=== PATIENT | female | born 1960 | race Caucasian/White ===

== ENCOUNTER 2019-09-19 14:42 | Emergency (ER) | payer MEDICAID, OTHER ==
[~2019-09-19] VITALS: Ht 165.1 cm; Wt 72.7 kg
[~2019-09-19 14:42] MED LIST: ALB0.5UD IH; ALBU6.7H3 IH; PRED10TA PO
[2019-09-19] MEDS ORDERED: normal saline 1000ml 1,000 ML IV ONE (14:55)
--- NOTE | 2019-09-19 15:10 | NUR ---
CHILLED NS PULLED FROM [employer] [facility].
[2019-09-19 15:15] LABS: BASOPHILS # (AUTO) 0.1 X10'3 (0-0.2); EOSINOPHILS # (AUTO) 0.7 X10'3 (0-0.9); EOSINOPHILS % (AUTO) 7.9 % (0-6); HEMOGLOBIN 13.9 g/dl (12.0-16.0); LYMPHOCYTES # (AUTO) 2.2 X10'3 (1.1-4.8); LYMPHOCYTES % (AUTO) 23.2 % (21-51); MEAN CORPUSCULAR HEMOGLOBIN 29.3 PG (27.0-31.0); MEAN CORPUSCULAR HGB CONC 33.1 g/dL (33.0-36.5); MEAN CORPUSCULAR VOLUME 88.7 FL (78-98); MEAN PLATELET VOLUME 8.9 FL (7.4-10.4); MONOCYTES # (AUTO) 0.6 X10'3 (0-0.9); MONOCYTES % (AUTO) 6.7 % (2-12); NEUTROPHILS # (AUTO) 5.8 X10'3 (1.8-7.7); NEUTROPHILS % (AUTO) 61.2 % (42-75); PLATELET COUNT 197 X10'3 (140-440); RED BLOOD COUNT 4.74 X10'6 (4.20-5.60); RED CELL DISTRIBUTION WIDTH 13.7 % (11.5-14.5); WHITE BLOOD COUNT 9.5 X10'3 (4.5-11.0)
[2019-09-19 15:22] LABS: ALBUMIN 3.6 G/DL (3.4-5.0); ANION GAP 9 (8-16); BLOOD UREA NITROGEN 18 MG/DL (7-18); BUN/CREATININE RATIO 23.4 (6.6-38.0); CALCIUM 8.9 MG/DL (8.5-10.1); CHLORIDE 110 MMOL/L (99-107); CREATININE 0.77 MG/DL (0.40-0.90); GLUCOSE 123 MG/DL (70-104); POTASSIUM 3.5 MMOL/L (3.5-5.1); SODIUM 143 MMOL/L (135-145); TOTAL CARBON DIOXIDE 24.5 MMOL/L (24-32); eGFR 78 ML/MIN
--- NOTE | 2019-09-19 15:29 | NUR ---
pt family called Nemo [phone]
[2019-09-19 16:16] VITALS: BP 161/97
--- NOTE | 2019-09-19 17:32 | NUR ---
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 Nemo coming from [place]. Pt to await arrival in the lobby.
== END 2019-09-19 17:45 | disposition home or self-care (01) ==
LOC: ER 14:43
DX: R41.82 Altered mental status, unspecified (principal); T67.9XXA Effect of heat and light, unspecified, initial encounter; J44.9 Chronic obstructive pulmonary disease, unspecified; F41.9 Anxiety disorder, unspecified; F32.9 Major depressive disorder, single episode, unspecified; F15.90 Other stimulant use, unspecified, uncomplicated; F17.200 Nicotine dependence, unspecified, uncomplicated; Z79.899 Other long term (current) drug therapy; Y92.89 Other specified places as the place of occurrence of the external cause
CPT/HCPCS: 36415; 80048; 85025; 93005; 96360; 99284; J7030

== ENCOUNTER 2022-06-28 12:46 | Inpatient (IN) | payer MEDICAID ==
[~2022-06-28] VITALS: Ht 165.1 cm; Wt 74.2 kg
[2022-06-28] VITALS (18 sets, daily range): BP systolic 112–188; BP diastolic 59–105
[2022-06-28] MEDS ORDERED: propofol 1000mg/100ml bottle 100 ML IV ONE (13:00)
[2022-06-28] MEDS ORDERED: FENTANYL-0.9 % NACL/PF 100 ML IV PRN ×2 (13:00→13:05)
[2022-06-28] MEDS: propofol 1000mg/100ml bottle 100 ML IV SCH (13:04)
[2022-06-28 13:20] LABS: BASOPHILS % (AUTO) 0.2 % (0-1); EOSINOPHILS % (AUTO) 0.3 % (0-6); HEMATOCRIT 41.9 % (35.0-45.0); HEMOGLOBIN 13.8 g/dl (12.0-16.0); LYMPHOCYTES # (AUTO) 0.5 X10'3 (1.1-4.8); LYMPHOCYTES % (AUTO) 3.9 % (21-51); MEAN CORPUSCULAR HEMOGLOBIN 29.3 PG (27.0-31.0); MEAN CORPUSCULAR HGB CONC 32.9 g/dL (33.0-36.5); MEAN CORPUSCULAR VOLUME 89.2 FL (78-98); MEAN PLATELET VOLUME 8.6 FL (7.4-10.4); MONOCYTES # (AUTO) 0.2 X10'3 (0-0.9); MONOCYTES % (AUTO) 1.6 % (2-12); NEUTROPHILS # (AUTO) 12.8 X10'3 (1.8-7.7); PLATELET COUNT 192 X10'3 (140-440); RED BLOOD COUNT 4.69 X10'6 (4.20-5.60); RED CELL DISTRIBUTION WIDTH 14.5 % (11.5-14.5); WHITE BLOOD COUNT 13.6 X10'3 (4.5-11.0)
[2022-06-28 13:26] LABS: ABG BASE EXCESS -5.1 mmol/L (-2.0-2.0); ABG HCO3 21.4 mmol/L (22.0-26.0); ABG OXYGEN SATURATION 99.7 % (94-97); ABG PCO2 (T) 44.7 mmHg (32.0-45.0); ABG PO2 (T) 564.6 mmHg (75.0-100.0); ALLEN'S TEST POSITIVE; FCOHb 0.7 % (0.0-3.9); FMetHb 0.4 % (0.0-1.5); FO2Hb 98.6 % (94-97); PATIENT TEMPERATURE 36.7; PEEP 5 cm H2O; RESPIRATORY RATE 18 b/min; TIDAL VOLUME 450 mL; TOTAL HEMOGLOBIN 14.8 G/dl (12.0-16.0)
[2022-06-28] MEDS ORDERED: magnesium Cl slow-release 64mg tablet PO PRN ×2 (13:30)
[2022-06-28] MEDS ORDERED: acetaminophen 325mg tablet PO PRN (13:30)
[2022-06-28] MEDS ORDERED: magnesium 2GM in 50ml NS 50 ML IV PRN (13:30)
[2022-06-28] MEDS ORDERED: potassium Cl 40MEQ/1/2NS 520ml 520 ML IV PRN ×2 (13:30)
[2022-06-28] MEDS ORDERED: ondansetron/PF 4mg/2ml inj IV PRN ×2 (13:30)
[2022-06-28] MEDS ORDERED: propofol 1000mg/100ml bottle 100 ML IV SCH (13:30)
[2022-06-28] MEDS ORDERED: potassium Cl 20 mEq SR tablet PO PRN ×3 (13:30)
[2022-06-28] MEDS ORDERED: FENTANYL-0.9 % NACL/PF 100 ML IV SCH (13:30)
[2022-06-28] MEDS ORDERED: mag hydrox/Alum hydrox/simeth 30ml oral suspension PO PRN ×2 (13:30)
[2022-06-28] MEDS ORDERED: magnesium 4gm in 100ml NS 100 ML IV PRN (13:30)
[2022-06-28] MEDS ORDERED: magnesium hydroxide 30ml (MOM) UD suspension PO PRN ×2 (13:30)
[2022-06-28 13:36] LABS: ALANINE AMINOTRANSFERASE 38 U/L (12-78); ALBUMIN 3.7 G/DL (3.4-5.0); ALBUMIN/GLOBULIN RATIO 0.9 (1.1-1.5); ALKALINE PHOSPHATASE 103 IU/L (46-116); ANION GAP 9 (8-16); ASPARTATE AMINO TRANSFERASE 29 U/L (10-37); BILIRUBIN,TOTAL 0.4 MG/DL (0.1-1.0); BLOOD UREA NITROGEN 15 MG/DL (7-18); BUN/CREATININE RATIO 21.7 (10.0-20.0); CALCIUM 8.4 MG/DL (8.5-10.1); CHLORIDE 106 MMOL/L (99-107); CREATININE 0.69 MG/DL (0.40-0.90); GLUCOSE 144 MG/DL (70-104); SODIUM 141 MMOL/L (135-145); TOTAL CARBON DIOXIDE 25.7 MMOL/L (24-32); TOTAL PROTEIN 7.9 G/DL (6.4-8.2); eGFR 87 ML/MIN
[2022-06-28 13:40] LABS: POTASSIUM 2.9 MMOL/L (3.5-5.1)
--- NOTE | 2022-06-28 13:57 | NUR ---
NEPO AT BEDSIDE
[2022-06-28] MEDS: methylPREDNISolone sod succ 125mg/2ml vial IV SCH ×2 (14:05→20:54)
--- NOTE | 2022-06-28 14:30 | NUR ---
Received report from BONIFACIO Harrell. Pt arrived from ED monitored, mechanically ventilated, 100% FIO2, sedated, in sinus rhythm.
[2022-06-28] MEDS ORDERED: albuterol 2.5 MG/3 ML nebule NEB SCH (16:00)
[2022-06-28 16:08] LABS: CLARITY,URINE SLIGHTLY CLOUDY (Clear); COLOR,URINE YELLOW (Yellow); GLUCOSE, URINE NEGATIVE (Neg); KETONES,URINE NEGATIVE (Neg); LEUKOCYTE ESTERASE ,URINE NEGATIVE (Neg); NITRITES, URINE NEGATIVE (Neg); OCCULT BLOOD,URINE SMALL (Neg); PROTEIN,URINE NEGATIVE (Neg); UROBILINOGEN,URINE 0.2 E.U/dL (0.2-1.0)
[2022-06-28] MEDS: albuterol 2.5 MG/3 ML nebule NEB SCH ×3 (16:16→23:14)
[2022-06-28 16:20] LABS: SQUAMOUS EPITHELIAL CELL,UR FEW /LPF (FEW); UA COLLECTION TYPE FOLEY CATH
[2022-06-28 16:22] LABS: BACTERIA,URINE 3+ /HPF (Neg); RBC,URINE 0-2 /HPF (0-2); WBC,URINE 0-4 /HPF (0-4)
--- NOTE | 2022-06-28 16:51 | NUR ---
Pt attempted to pull ETT. Able to follow commands. Weening parameters obtained by RT. RSBI 30, NIF -23, Vital Capacity 676 mL, positive cuff leak. Pt will not open eyes, still behaves sedated RASS -1/-2. Received order from Dr Pearce to hold any benzodiazepines, resume light sedation with propofol and fentanyl.
--- NOTE | 2022-06-28 18:25 | NUR ---
Problems reprioritized. Patient report given, questions answered & plan of care reviewed with BONIFACIO Bedoya.
[2022-06-28] MEDS ORDERED: docusate sod 100mg capsule PO SCH ×2 (20:00)
[2022-06-28] MEDS ORDERED: K and/or MAG REPLACEMENT MC SCH (20:00)
[2022-06-28] MEDS: K and/or MAG REPLACEMENT MC SCH (20:00)
[2022-06-28] MEDS ORDERED: docusate sodium 100mg/10ml UD cup PO SCH (20:34)
[2022-06-28] MEDS: docusate sodium 100mg/10ml UD cup PO SCH (20:58)
[2022-06-29] VITALS (24 sets, daily range): BP systolic 95–132; BP diastolic 47–74
[2022-06-29] MEDS ORDERED: dexmedetomidin/NS 400mcg/100ml 100 ML IV PRN (02:15)
[2022-06-29] MEDS: methylPREDNISolone sod succ 125mg/2ml vial IV SCH ×4 (02:16→19:31)
[2022-06-29] MEDS: albuterol 2.5 MG/3 ML nebule NEB SCH ×6 (03:01→23:32)
[2022-06-29 03:18] LABS: ABG BASE EXCESS 1.4 mmol/L (-2.0-2.0); ABG HCO3 26.8 mmol/L (22.0-26.0); ABG OXYGEN SATURATION 91.3 % (94-97); ABG PCO2 (T) 44.6 mmHg (32.0-45.0); ABG PO2 (T) 56.6 mmHg (75.0-100.0); ALLEN'S TEST POSITIVE; FCOHb 0.3 % (0.0-3.9); FMetHb 0.4 % (0.0-1.5); FO2Hb 90.7 % (94-97); PATIENT TEMPERATURE 36.6; TOTAL HEMOGLOBIN 14.3 G/dl (12.0-16.0)
[2022-06-29] MEDS: propofol 1000mg/100ml bottle 100 ML IV SCH (03:26)
[2022-06-29] MEDS ORDERED: dexmedetomidin/NS 400mcg/100ml 100 ML IV SCH (03:50)
[2022-06-29] MEDS ORDERED: ALBU18HF2 INH (03:58)
[2022-06-29 06:18] LABS: BASOPHILS % (AUTO) 0.1 % (0-1); EOSINOPHILS % (AUTO) 0.1 % (0-6); HEMATOCRIT 40.2 % (35.0-45.0); HEMOGLOBIN 13.2 g/dl (12.0-16.0); LYMPHOCYTES # (AUTO) 0.6 X10'3 (1.1-4.8); LYMPHOCYTES % (AUTO) 3.7 % (21-51); MEAN CORPUSCULAR HEMOGLOBIN 29.1 PG (27.0-31.0); MEAN CORPUSCULAR HGB CONC 32.9 g/dL (33.0-36.5); MEAN CORPUSCULAR VOLUME 88.3 FL (78-98); MEAN PLATELET VOLUME 9.3 FL (7.4-10.4); MONOCYTES # (AUTO) 0.3 X10'3 (0-0.9); MONOCYTES % (AUTO) 2.2 % (2-12); NEUTROPHILS # (AUTO) 14.1 X10'3 (1.8-7.7); NEUTROPHILS % (AUTO) 93.9 % (42-75); PLATELET COUNT 197 X10'3 (140-440); RED BLOOD COUNT 4.56 X10'6 (4.20-5.60); RED CELL DISTRIBUTION WIDTH 14.3 % (11.5-14.5); WHITE BLOOD COUNT 15.1 X10'3 (4.5-11.0)
[2022-06-29 06:27] LABS: ALANINE AMINOTRANSFERASE 28 U/L (12-78); ALBUMIN 3.2 G/DL (3.4-5.0); ALBUMIN/GLOBULIN RATIO 0.8 (1.1-1.5); ALKALINE PHOSPHATASE 90 IU/L (46-116); ANION GAP 8 (8-16); ASPARTATE AMINO TRANSFERASE 18 U/L (10-37); BILIRUBIN,TOTAL 0.4 MG/DL (0.1-1.0); BLOOD UREA NITROGEN 13 MG/DL (7-18); BUN/CREATININE RATIO 28.3 (10.0-20.0); CALCIUM 8.8 MG/DL (8.5-10.1); CHLORIDE 104 MMOL/L (99-107); CREATININE 0.46 MG/DL (0.40-0.90); GLUCOSE 164 MG/DL (70-104); SODIUM 137 MMOL/L (135-145); TOTAL PROTEIN 7.1 G/DL (6.4-8.2); TRIGLYCERIDES 63 MG/DL (20-135); eGFR > 90 ML/MIN
--- NOTE | 2022-06-29 06:47 | NUR ---
Patient in room [facility] 2013. I have received report from Elke VALDOVINOS and had the opportunity to ask questions and assume patient care. Addendum: 06/29/22 at 0648 by Sandra Fernandes RN Amended: Links added.
[2022-06-29] MEDS: K and/or MAG REPLACEMENT MC SCH ×2 (06:50→19:33)
[2022-06-29] MEDS: docusate sodium 100mg/10ml UD cup PO SCH ×2 (06:58→19:32)
--- NOTE | 2022-06-29 08:19 | NUR ---
Precedex turned off at 0715. Pt. waking up. Able to follow commands. RT paged to obtain weaning parameters.
--- NOTE | 2022-06-29 09:05 | NUR ---
Pt. passed weaning parameters. Unable to keep eyes open.
[2022-06-29] MEDS ORDERED: pantoprazole 40MG/NS 100ML BAG 100 ML IV SCH ×2 (09:15→20:00)
[2022-06-29] MEDS ORDERED: levoFLOXACIN-Levaquin 750MG/D5 150 ML IV STA (09:17)
[2022-06-29] MEDS ORDERED: FLUT1BLS4 INH (09:54)
[2022-06-29] MEDS: pantoprazole 40MG/NS 100ML BAG 100 ML IV SCH ×2 (10:04→19:31)
--- NOTE | 2022-06-29 10:06 | NUR ---
Increased 02 to 5L nasal canula. Sp02 91%. RN notified Dr. Pearce. Dr. Pearce stated "it's OK".
[2022-06-29] MEDS: CLINDAMYCIN 600mg IN NS 50ML 50 ML IV SCH ×2 (10:16→15:37)
--- NOTE | 2022-06-29 10:18 | NUR ---
Noted pt initially intubated DX acute respiratory failure related to asthma exacerbation, hypokalemia, and meth abuse per EMR. Pt now extubated this AM to remain NPO until once pt more A/O w/ BRICK [employer]OPPER BSS to follow per relay man at rounds this AM. Addendum: 06/29/22 at [address] Amended: Links added.
--- NOTE | 2022-06-29 10:38 | NUR ---
Friend "Anne" has called twice for updates, boyfriend "Ivan" called for update once.
--- NOTE | 2022-06-29 10:43 | NUR ---
Vince Vines at bedside.
[2022-06-29] MEDS: normal saline 1000ml 1,000 ML IV SCH ×3 (12:32→22:30)
--- NOTE | 2022-06-29 12:34 | NUR ---
Pt. waking up. Asked for water. Ice chips provided.
--- NOTE | 2022-06-29 13:32 | NUR ---
Order received to transfer pt. to the floor. Charge aware. Pt. ambulated with PT.
[2022-06-29] MEDS ORDERED: mineral oil/petrolatum ophthal oint EACHEYE SCH (14:00)
--- NOTE | 2022-06-29 15:02 | NUR ---
Pt. passed RN bedside swallow eval. Paged hospitalist for diet order. Boyfriend called again for status update.
--- NOTE | 2022-06-29 17:06 | NUR ---
Report called to Isaías VALDOVINOS. Pt. to be transferred to room [facility].
--- NOTE | 2022-06-29 17:20 | NUR ---
Patient in room PCU 3021. I have received report from Sandra VALDOVINOS and had the opportunity to ask questions and assume patient care.
--- NOTE | 2022-06-29 17:22 | NUR ---
Pt. to 3021 via chair (with wheels) in stable condition with all belongings and chart. Isaías RN aware of pt's arrival. Call light given to pt.
--- NOTE | 2022-06-29 18:04 | NUR ---
Problems reprioritized. Patient report given, questions answered & plan of care reviewed with Gary VALDOVINOS.
[2022-06-30] MEDS: methylPREDNISolone sod succ 125mg/2ml vial IV SCH ×4 (01:27→19:58)
[2022-06-30] MEDS: albuterol 2.5 MG/3 ML nebule NEB SCH ×3 (03:10→11:38)
[2022-06-30 06:00] VITALS: BP 135/74
--- NOTE | 2022-06-30 06:29 | NUR ---
Problems reprioritized. Patient report given, questions answered & plan of care reviewed with MICHELLE. Addendum: 06/30/22 at 0630 by Loco Viveros RN Amended: Links added.
--- NOTE | 2022-06-30 06:41 | NUR ---
Patient in room PCU 3021. I have received report from BONIFACIO AMATO and had the opportunity to ask questions and assume patient care.
[2022-06-30] MEDS: K and/or MAG REPLACEMENT MC SCH ×2 (08:00→20:00)
[2022-06-30] MEDS: pantoprazole 40MG/NS 100ML BAG 100 ML IV SCH ×2 (09:38→19:58)
[2022-06-30] MEDS: docusate sodium 100mg/10ml UD cup PO SCH ×2 (09:38→20:01)
[2022-06-30] MEDS: CLINDAMYCIN 600mg IN NS 50ML 50 ML IV SCH ×3 (09:38→16:14)
[2022-06-30] MEDS: levoFLOXACIN-Levaquin 750MG/D5 150 ML IV SCH (11:49)
[2022-06-30] MEDS ORDERED: albuterol 2.5 MG/3 ML nebule NEB PRN (11:55)
[2022-06-30 12:21] VITALS: BP 112/62
[2022-06-30 16:18] VITALS: BP 133/72
[2022-06-30] MEDS: normal saline 1000ml 1,000 ML IV SCH (16:18)
[2022-06-30 18:00] VITALS: BP 135/81
--- NOTE | 2022-06-30 18:32 | NUR ---
Problems reprioritized. Patient report given, questions answered & plan of care reviewed with BONIFACIO Phelan.
[2022-06-30] MEDS: acetaminophen 325mg tablet PO PRN (21:18)
[2022-06-30 22:00] VITALS: BP 143/77
[2022-07-01] MEDS: CLINDAMYCIN 600mg IN NS 50ML 50 ML IV SCH ×3 (00:21→16:12)
[2022-07-01 02:00] VITALS: BP 151/88
[2022-07-01] MEDS: methylPREDNISolone sod succ 125mg/2ml vial IV SCH ×4 (02:36→20:59)
[2022-07-01 06:00] VITALS: BP 140/98
--- NOTE | 2022-07-01 06:26 | NUR ---
Problems reprioritized. Patient report given, questions answered & plan of care reviewed with Pushpa Marcum.
[2022-07-01] MEDS: K and/or MAG REPLACEMENT MC SCH ×2 (08:00→20:00)
[2022-07-01] MEDS: docusate sodium 100mg/10ml UD cup PO SCH ×2 (08:00→20:00)
[2022-07-01] MEDS: pantoprazole 40MG/NS 100ML BAG 100 ML IV SCH ×2 (09:16→20:59)
[2022-07-01] MEDS: levoFLOXACIN-Levaquin 750MG/D5 150 ML IV SCH (09:17)
[2022-07-01 15:00] VITALS: BP 132/72
[2022-07-01 18:00] VITALS: BP 104/68
--- NOTE | 2022-07-01 18:00 | NUR ---
Patient in room PCU 3021. I have received report from Zenobia VALDOVINOS and had the opportunity to ask questions and assume patient care.
--- NOTE | 2022-07-01 18:24 | NUR ---
Problems reprioritized. Patient report given, questions answered & plan of care reviewed with Latesha VALDOVINOS. Pt stable at shift change.
--- NOTE | 2022-07-01 18:45 | NUR ---
Problems reprioritized. Patient report given, questions answered & plan of care reviewed with Latesha VALDOVINOS, patient stable at transfer of care.
[2022-07-01 22:00] VITALS: BP 108/58
[2022-07-02] MEDS: CLINDAMYCIN 600mg IN NS 50ML 50 ML IV SCH ×2 (01:50→07:25)
[2022-07-02] MEDS: methylPREDNISolone sod succ 125mg/2ml vial IV SCH ×2 (01:50→07:25)
[2022-07-02] MEDS: normal saline 1000ml 1,000 ML IV SCH (01:54)
[2022-07-02 02:00] VITALS: BP 156/94
[2022-07-02 06:00] VITALS: BP 107/77
--- NOTE | 2022-07-02 06:29 | NUR ---
Problems reprioritized. Patient report given, questions answered & plan of care reviewed with Zenobia VALDOVINOS.
--- NOTE | 2022-07-02 06:54 | NUR ---
Patient in room PCU 3021. I have received report from Latesha VALDOVINOS, and had the opportunity to ask questions and assume patient care.
[2022-07-02] MEDS: pantoprazole 40MG/NS 100ML BAG 100 ML IV SCH (07:24)
[2022-07-02] MEDS: levoFLOXACIN-Levaquin 750MG/D5 150 ML IV SCH (07:24)
[2022-07-02] MEDS: K and/or MAG REPLACEMENT MC SCH ×2 (08:00→20:00)
[2022-07-02] MEDS: docusate sodium 100mg/10ml UD cup PO SCH ×2 (08:00→20:00)
[2022-07-02] MEDS: acetaminophen 325mg tablet PO PRN (08:01)
--- NOTE | 2022-07-02 09:55 | NUR ---
Initial: Pt admit for acute respiratory failure with hypoxemia secondary to asthma exacerbation and hypokalemia. Currently on a regular diet and eating well, documented with 100% PO intake of all meals with the exception of 50% PO intake of lunch 5/10, overall meeting estimated nutrient needs. Per physician progress note pt with possible aspiration PNA. Pt s/p BSS with ST recs to continue regular consistency of food and liquids as pt swallowing well with no aspiration noted. LBM 5/10 per I&O. No nutrition intervention implemented at this time. Will continue to follow. Recommendations: 1) Continue regular diet 2) Routine bowel care 3) Weekly scaled weights Addendum: 07/02/22 at [address] Amended: Links added.
[2022-07-02] MEDS ORDERED: PERFLUTREN PROTEIN-A MICROSPHR (Optison) 0.22 MG/ML 3ML VIAL IV ONE (10:10)
[2022-07-02 10:18] LABS: BASOPHILS % (AUTO) 0.1 % (0-1); EOSINOPHILS % (AUTO) 0 % (0-6); HEMATOCRIT 44.4 % (35.0-45.0); HEMOGLOBIN 14.6 g/dl (12.0-16.0); LYMPHOCYTES # (AUTO) 0.6 X10'3 (1.1-4.8); LYMPHOCYTES % (AUTO) 4.6 % (21-51); MEAN CORPUSCULAR HEMOGLOBIN 28.9 PG (27.0-31.0); MEAN CORPUSCULAR VOLUME 87.8 FL (78-98); MONOCYTES # (AUTO) 0.3 X10'3 (0-0.9); MONOCYTES % (AUTO) 2.5 % (2-12); NEUTROPHILS # (AUTO) 12.1 X10'3 (1.8-7.7); NEUTROPHILS % (AUTO) 92.8 % (42-75); PLATELET COUNT 238 X10'3 (140-440); RED BLOOD COUNT 5.06 X10'6 (4.20-5.60); RED CELL DISTRIBUTION WIDTH 14.5 % (11.5-14.5); WHITE BLOOD COUNT 13.1 X10'3 (4.5-11.0)
[2022-07-02 10:53] LABS: ALANINE AMINOTRANSFERASE 31 U/L (12-78); ALBUMIN 2.8 G/DL (3.4-5.0); ALBUMIN/GLOBULIN RATIO 0.7 (1.1-1.5); ALKALINE PHOSPHATASE 77 IU/L (46-116); ANION GAP 9 (8-16); ASPARTATE AMINO TRANSFERASE 13 U/L (10-37); BILIRUBIN,TOTAL 0.4 MG/DL (0.1-1.0); BLOOD UREA NITROGEN 17 MG/DL (7-18); BUN/CREATININE RATIO 21.3 (10.0-20.0); CALCIUM 8.3 MG/DL (8.5-10.1); CHLORIDE 106 MMOL/L (99-107); GLUCOSE 209 MG/DL (70-104); POTASSIUM 3.2 MMOL/L (3.5-5.1); SODIUM 140 MMOL/L (135-145); TOTAL CARBON DIOXIDE 24.7 MMOL/L (24-32); TOTAL PROTEIN 6.7 G/DL (6.4-8.2); eGFR 73 ML/MIN
[2022-07-02] MEDS ORDERED: levoFLOXACIN 750MG TABLET PO SCH (11:00)
--- NOTE | 2022-07-02 11:12 | NUR ---
PAGER ID: [phone] MESSAGE: [phone], Tony Pulido. Pts K+ is 3.2. Ill replace per protocol. Also her EKG said sinus rhythm. Zenobia U 6230.
[2022-07-02] MEDS: potassium Cl 20 mEq SR tablet PO PRN ×2 (11:36→20:07)
[2022-07-02] MEDS ORDERED: POTASSIUM BICARB 20meq eff tab 20 MEQ TABLET.EFF PO PRN (17:40)
[2022-07-02] MEDS ORDERED: acetaminophen 325mg tablet PO PRN (17:44)
[2022-07-02 18:00] VITALS: BP 112/78
--- NOTE | 2022-07-02 18:00 | NUR ---
Patient in room PCU 3021. I have received report from Gary VALDOVINOS and had the opportunity to ask questions and assume patient care.
--- NOTE | 2022-07-02 18:21 | NUR ---
Problems reprioritized. Patient report given, questions answered & plan of care reviewed with Latesha VALDOVINOS. Pt stable at change of shift.
--- NOTE | 2022-07-02 18:40 | NUR ---
Problems reprioritized. Patient report given, questions answered & plan of care reviewed with Latesha VALDOVINOS, patient stable at transfer of care. Addendum: 07/02/22 at 2123 by Hilaria Chand RN Patient in room [facility] 302. I have received report from Zenobia VALDOVINOS and had the opportunity to ask questions and assume patient care.
[2022-07-02 22:00] VITALS: BP 132/81
[2022-07-03 02:00] VITALS: BP 129/92
[2022-07-03 06:00] VITALS: BP 145/85
--- NOTE | 2022-07-03 06:48 | NUR ---
Problems reprioritized. Patient report given, questions answered & plan of care reviewed with Jaelyn VALDOVINOS.
--- NOTE | 2022-07-03 07:06 | NUR ---
Patient in room PCU 3021. I have received report from Latesha VALDOVINOS and had the opportunity to ask questions and assume patient care. Pt is laying on R side of body in bed and is resting comfortably. Pt on RA, no s/s of distress or s/s of pain at this time. BLL, call light within reach, freqeuntly used items in reach, frequent rounding, rn clinical research socks on. Will continue to monitor.
[2022-07-03 07:22] LABS: BASOPHILS % (AUTO) 0.1 % (0-1); EOSINOPHILS # (AUTO) 0.1 X10'3 (0-0.9); EOSINOPHILS % (AUTO) 0.5 % (0-6); HEMATOCRIT 45.6 % (35.0-45.0); HEMOGLOBIN 15.3 g/dl (12.0-16.0); LYMPHOCYTES # (AUTO) 2.7 X10'3 (1.1-4.8); LYMPHOCYTES % (AUTO) 17.8 % (21-51); MEAN CORPUSCULAR HEMOGLOBIN 29.3 PG (27.0-31.0); MEAN CORPUSCULAR HGB CONC 33.4 g/dL (33.0-36.5); MEAN CORPUSCULAR VOLUME 87.7 FL (78-98); MEAN PLATELET VOLUME 8.9 FL (7.4-10.4); MONOCYTES # (AUTO) 1.3 X10'3 (0-0.9); MONOCYTES % (AUTO) 8.7 % (2-12); NEUTROPHILS # (AUTO) 11.2 X10'3 (1.8-7.7); NEUTROPHILS % (AUTO) 72.9 % (42-75); PLATELET COUNT 217 X10'3 (140-440); RED CELL DISTRIBUTION WIDTH 14.3 % (11.5-14.5); WHITE BLOOD COUNT 15.4 X10'3 (4.5-11.0)
[2022-07-03 07:32] LABS: ALANINE AMINOTRANSFERASE 29 U/L (12-78); ALBUMIN 2.9 G/DL (3.4-5.0); ALBUMIN/GLOBULIN RATIO 0.7 (1.1-1.5); ALKALINE PHOSPHATASE 74 IU/L (46-116); ANION GAP 7 (8-16); ASPARTATE AMINO TRANSFERASE 12 U/L (10-37); BILIRUBIN,TOTAL 0.5 MG/DL (0.1-1.0); BLOOD UREA NITROGEN 22 MG/DL (7-18); BUN/CREATININE RATIO 29.3 (10.0-20.0); CALCIUM 8.4 MG/DL (8.5-10.1); CHLORIDE 103 MMOL/L (99-107); CREATININE 0.75 MG/DL (0.40-0.90); GLUCOSE 97 MG/DL (70-104); POTASSIUM 3.7 MMOL/L (3.5-5.1); SODIUM 138 MMOL/L (135-145); TOTAL CARBON DIOXIDE 27.8 MMOL/L (24-32); TOTAL PROTEIN 6.8 G/DL (6.4-8.2); eGFR 79 ML/MIN
[2022-07-03] MEDS ORDERED: predniSONE 20 mg tablet PO SCH (08:00)
[2022-07-03] MEDS: K and/or MAG REPLACEMENT MC SCH (08:00)
[2022-07-03] MEDS: docusate sodium 100mg/10ml UD cup PO SCH (08:00)
[2022-07-03] MEDS ORDERED: PRED20TA PO (10:20)
[2022-07-03] MEDS ORDERED: LEVO750T68 PO (10:20)
[2022-07-03 11:00] VITALS: BP 108/75
--- NOTE | 2022-07-03 12:40 | NUR ---
Pt DC'd to personal vehicle. Friend is driving. VSS, Pt afebrile, no issues with medications. Discharge education provided and all discharge questions answered. Incentive spirometer x2 Provided as well as flutter valve. PIV to RFA removed, tip intact, no c/o pain with removal. All belongings left with Pt. Addendum: 07/03/22 at 1312 by Jaelyn Cardenas RN Pts inhaler still in Pharmacy. Pt contacted via phone, no answer at this time. Will continue to reach out. Addendum: 07/03/22 at 1403 by Jaelyn Cardenas RN Lien Joiner is Jomagalies friend and she states she will be picking up this Pts Albuterol inhaler on Wednesday or Wednesday.
== END 2022-07-03 12:33 | disposition home or self-care (01) | DRG 133 ==
LOC: ER 12:47 → ED HOLD 13:42 → CICU 2S 14:30 → ICU 2S 06-29 09:50 → PCU 3S 06-29 17:18
PROVIDERS: ADMIT Internal Medicine Critical Care Medicine; ATTEND Internal Medicine Critical Care Medicine
PROC: 5A1935Z Respiratory Ventilation, Less than 24 Consecutive Hours (ICD-10-PCS; principal; 2022-06-28)
PROC: 0BH17EZ Insertion of Endotracheal Airway into Trachea, Via Natural or Artificial Opening (ICD-10-PCS; 2022-06-28)
PROC: 5A09357 Assistance with Respiratory Ventilation, Less than 24 Consecutive Hours, Continuous Positive Airway Pressure (ICD-10-PCS; 2022-06-28)
PROC: 5A09357 Assistance with Respiratory Ventilation, Less than 24 Consecutive Hours, Continuous Positive Airway Pressure (ICD-10-PCS; 2022-06-29)
DX: J96.01 Acute respiratory failure with hypoxia (principal); J69.0 Pneumonitis due to inhalation of food and vomit; J45.901 Unspecified asthma with (acute) exacerbation; J44.9 Chronic obstructive pulmonary disease, unspecified; F15.10 Other stimulant abuse, uncomplicated; B96.20 Unspecified Escherichia coli [E. coli] as the cause of diseases classified elsewhere; I49.9 Cardiac arrhythmia, unspecified; J96.02 Acute respiratory failure with hypercapnia; I10 Essential (primary) hypertension; E87.6 Hypokalemia; F17.210 Nicotine dependence, cigarettes, uncomplicated; I49.3 Ventricular premature depolarization; N39.0 Urinary tract infection, site not specified; F32.A Depression, unspecified; F41.9 Anxiety disorder, unspecified; Z90.710 Acquired absence of both cervix and uterus; Z79.899 Other long term (current) drug therapy; Z98.51 Tubal ligation status; Z91.148 Patient's other noncompliance with medication regimen for other reason
CPT/HCPCS: 36415; 36600; 71045; 80053; 81001; 82803; 82948; 84132; 84443; 84478; 85018; 85025; 87070; 87077; 87081; 87088; 87186; 92508; 92616; 93005; 93306; 94002; 94003; 94640; 94760; 94799; 96365; 97116; 97161; 97530; 99285; A4615; A6258; A7015; C9113; G0378; J1956; J2704; J2930; J3010; J3480; J3490; J7030; J7040; J7512